=== PATIENT | female | born 1935 | race American Indian/Alaskan Native ===

== ENCOUNTER 2020-02-29 10:36 | Observation (INO) | payer MEDICARE ==
[2020-02-29] MEDS ORDERED: ASPIRIN EC 325 MG TAB PO ONE (11:13)
[2020-02-29] MEDS ORDERED: CLOPIDOGREL 75 MG TAB ONE ×2 (11:53→15:06)
[2020-02-29 12:06] LABS: Basophils % (Auto) 1.2 % (0.0-1.8); Eosinophils # (Auto) 0.1 K/mm3 (0.0-0.4); Eosinophils % (Auto) 2.4 % (0.0-4.3); Hemoglobin 11.8 gm/dl (10.1-14.3); Lymphocytes # (Auto) 1.4 K/mm3 (1.2-5.4); Lymphocytes % (Auto) 34.2 % (13.4-35.0); Mean Corpuscular HGB Conc 34 % (30-34); Mean Corpuscular Volume 95 fl (79-97); Monocytes # (Auto) 0.5 K/mm3 (0.0-0.8); Monocytes % (Auto) 11.3 % (0.0-7.3); Platelet Count 236 K/mm3 (140-440); Red Blood Count 3.68 M/mm3 (3.65-5.03); Red Cell Distribution Width 14.3 % (13.2-15.2)
[2020-02-29] MEDS: SODIUM CHLORIDE 0.9% 500 ML 500 ML IV SCH ×3 (12:17→21:55)
[2020-02-29 12:19] LABS: INR 0.97 (0.87-1.13)
[2020-02-29 12:22] LABS: Calcium 9.8 mg/dL (8.4-10.2)
[2020-02-29 12:24] LABS: Partial Thromboplastin Time 28.2 Sec. (24.2-36.6)
[2020-02-29] MEDS ORDERED: CLOPIDOGREL 75 MG TAB PO SCH (13:00)
[2020-02-29] MEDS ORDERED: fentaNYL 100 MCG/2 ML INJ ONE (13:30)
[2020-02-29] MEDS ORDERED: MIDAZOLAM 2 MG/2 ML INJ ONE (13:30)
[2020-02-29] MEDS ORDERED: VERAPAMIL 5 MG/2 ML INJ ONE (13:30)
[2020-02-29] MEDS ORDERED: HEPARIN/NS 5000 UNIT/500ML 1,000 ML IR ONE (13:30)
[2020-02-29] MEDS ORDERED: HEPARIN 10,000 UNITS/10 ML VIAL ONE (13:30)
[2020-02-29] MEDS ORDERED: LIDOCAINE (2%) 20 MG/1 ML VIAL 20 ML MDV INFILTRATI ONE (13:31)
[2020-02-29] MEDS: NITROGLYCERIN SYRINGE 3 ML ONE ×2 (13:49→13:50)
[2020-02-29] MEDS ORDERED: SODIUM CHLORIDE 0.9% 50 ML ONE (14:24)
[2020-02-29] MEDS: BIVALIRUDIN 250 MG INJ IV ONE ×3 (14:33→15:25)
[2020-02-29] MEDS ORDERED: ALUM-MAG HYDROXIDE-SIMETHICONE 200-200-20MG/5ML ORAL LIQD 30 ML ONE (15:06)
[2020-02-29] MEDS ORDERED: ACETAMINOPHEN 325 MG TAB PO PRN (15:14)
[2020-02-29] MEDS ORDERED: HYDROcodone/ACETAMINOPHEN 5-325 MG TAB PO PRN (15:14)
--- NOTE | 2020-02-29 15:26 | Event Note ---
<CYNTHIA DAVIS - Last Filed: 02/29/20 15:37> Date: 02/29/20 Patient underwent cardiac catheterization today, completed via the right femoral artery. Successful PCI of the small caliber first diagonal. Will admit overnight post PCI observation. Discharge tomorrow <DIMA MEREDITH - Last Filed: 03/01/20 07:28> Date: 03/01/20 the patient noted to have severe disease in the small caliber diagonal branch in the mid segment, underwent PCI to small caliber diagonal branch with a deployment of resolute PAMELA. The access is right radial artery. Tortuous course of the subclavian vessels as well as the aorta noted.
--- NOTE | 2020-02-29 17:51 | Cardiac Catherization Report ---
CARDIAC CATHETERIZATION REPORT PRIMARY DIRECT MARKETING COORDINATOR: Dr. Neri Elias CLINICAL INFORMATION: The patient is a pleasant 84-year-old -[place] female having recurrent exertional chest pains. Subsequently, she had a heart catheterization by Dr. Elias in the middle of January 2020, showed significant disease in the diagonal branch. Approximately 80% stenosis noted in the mid segment with diffuse disease distal to the stenotic lesion. She is being treated with nitrates, recently noticed having increased frequency of these pains. Subsequently, she is scheduled to have an elective PCI at [facility]. She has a history of hypertension and dyslipidemia. She is an octogenarian, risk factors and reviewed. Risks, benefits and alternatives were extensively discussed. After extensive discussion, we agreed to pursue for PCI to the diagonal branch. PROCEDURES PERFORMED: Today: 1. PCI to first diagonal branch with deployment of 2.25 x 18 mm Resolute Trenary drug-eluting stent. 2. Intracoronary nitroglycerin. SEDATION TIME: Sedation started at 1341 hours. Sedation ended at 1500 hours. Total sedation time is 79 minutes. The sedation is administered by a trained nurse under my supervision. I continue to monitor her hemodynamics and vital signs throughout the procedure. DESCRIPTION OF PROCEDURE: The right wrist area was cleaned and draped in sterile fashion. A 2% lidocaine was used for local anesthesia. Right radial artery was accessed with a micropuncture needle and 6-American slender sheath was inserted. Tortuosity of the subclavian vessels as well as the aorta noted. I used a 5-American Rentz diagnostic catheter to negotiate through the tortuosity in the aorta, subsequently selective angiograms of the left coronary system were obtained. After reviewing the diagnostic angiogram and reviewing the diagnostic angiogram from before that was obtained in 02/11/2020, we proceeded for intervention of the diagonal branch. PCI to diagonal branch:- The patient was given Angiomax during the procedure. A 6-American XB 3.5 guiding catheter was used and tried to engage the left coronary system, unable to navigate through the tortuosity in the subclavian vessels as well as in the aorta. Subsequently, I was able to get EBU 3.5 6-American guiding catheter to navigate with the help of a 5 American pigtail catheter inside the guiding catheter, and navigate to the tortuosity in the subclavian vessels as well as the aorta and able to selectively engage the left main coronary artery. Subsequently, a 0.014 BMW wire was placed in the LAD to give support to the guiding catheter. Critical lesion in the mid segment of the diagonal branch was successfully crossed with a 0.014 Runthrough wire. The lesion is predilated with a 2.0 x 10 mm Euphora balloon and subsequently stented with 2.25 x 18 mm Resolute Trenary PAMELA. The stent was deployed at 14 atmospheres. Intracoronary nitroglycerin was given. Post-intervention angiograms demonstrated a residual stenosis of 0% in the stented segment. The patient tolerated the procedure very well. At the end of the procedure, the right radial sheath was removed, radial wrist band applied. Hemostasis secured, transferred in hemodynamically and neurologically stable state to the observation area. CONCLUSIONS: The above study showed severe disease in the first diagonal branch in the mid segment, followed by diffuse disease, that area was stented with 2.25 x 18 mm Resolute Trenary drug-eluting stent with excellent results. Extreme tortuosity of the subclavian vessels as well as the proximal part of the aorta noted. RECOMMENDATIONS: 1. Aspirin 81 mg p.o. every day, uninterruptedly for rest of the life. 2. Plavix 75 mg p.o. every day, uninterruptedly for at least 1 year. Further recommendations and follow up as per Dr. Elias and Dr. Carrington Mccollum. Thanks Dr. Elias and Veda Almeida for allowing me to participate in the care of the patient. If you should have any further questions, please do not hesitate to contact me. JOB# [id number] JUAN F/SHIV KING
[2020-02-29] MEDS ORDERED: SODIUM CHLORIDE 0.9% 500 ML 500 ML ONE (21:50)
[2020-03-01] MEDS ORDERED: traZODone 50 MG TAB PO SCH ×3 (01:02→22:00)
[2020-03-01 05:24] LABS: Basophils % (Auto) 0.9 % (0.0-1.8); Eosinophils # (Auto) 0.1 K/mm3 (0.0-0.4); Eosinophils % (Auto) 2.6 % (0.0-4.3); Hemoglobin 10.7 gm/dl (10.1-14.3); Lymphocytes # (Auto) 1.1 K/mm3 (1.2-5.4); Lymphocytes % (Auto) 23.1 % (13.4-35.0); Mean Corpuscular HGB Conc 34 % (30-34); Mean Corpuscular Volume 96 fl (79-97); Monocytes # (Auto) 0.6 K/mm3 (0.0-0.8); Monocytes % (Auto) 12.1 % (0.0-7.3); Platelet Count 191 K/mm3 (140-440); Red Blood Count 3.32 M/mm3 (3.65-5.03); Red Cell Distribution Width 14.2 % (13.2-15.2)
[2020-03-01 05:39] LABS: Creatine Kinase MB 2.9 ng/mL (0.0-4.0)
[2020-03-01 05:47] LABS: Calcium 9.1 mg/dL (8.4-10.2)
[2020-03-01 06:34] LABS: Chol/HDL Ratio 3.11 %
--- NOTE | 2020-03-01 08:32 | XRay Report ---
XR chest 1V ap INDICATION / CLINICAL INFORMATION: post pci COMPARISON: None available. FINDINGS: SUPPORT DEVICES: None. HEART / MEDIASTINUM: No significant abnormality. LUNGS / PLEURA: Lungs are clear. Costophrenic sulci are sharp. No pneumothorax. ADDITIONAL FINDINGS: No significant additional findings. IMPRESSION: 1. No acute findings. Signer Name: Rohan Cherry MD Signed: 03/01/2020 8:27 AM Workstation Name: [id number]
--- NOTE | 2020-03-01 08:56 | Discharge Summary ---
Short Stay Discharge Plan Activity: advance as tolerated Diet: low fat, low cholesterol, low salt Wound: keep clean and dry Follow up with: YESI VAUGHAN MD [Primary Care Provider] - 7 Days ELROY BACH MD [Staff Physician] - 7 Days Prescriptions: AtorvaSTATin [Lipitor] 40 mg PO QHS #30 tablet
--- NOTE | 2020-03-01 09:28 | Short Stay Summary ---
<CYNTHIA DAVIS - Last Filed: 03/01/20 09:25> Short Stay Documentation Date of service: 03/01/20 - History H&P: obtained from office - Allergies and Medications Current Medications: Allergies No Known Allergies Allergy (Verified 03/11/18 16:09) Home Medications Medication Instructions Recorded Confirmed Last Taken Type Glimepiride 2 mg PO DAILY 05/03/14 02/29/20 02/28/20 History 2 mg Adult Low Dose Aspirin EC 81 mg PO DAILY 03/11/18 02/29/20 02/28/20 History 81 mg Clopidogrel [Plavix] 75 mg PO DAILY 02/29/20 02/29/20 02/28/20 History 75 mg Metoprolol Succinate [Toprol Xl] 25 mg PO DAILY 02/29/20 02/29/20 02/28/20 History 25 mg amLODIPine/VALSARTAN [Exforge 1 tab PO DAILY 02/29/20 02/29/20 02/28/20 History 10-160 mg Tablet] 1 AtorvaSTATin [Lipitor] 40 mg PO QHS #30 tablet 03/01/20 Unknown Rx Active Medications Acetaminophen (Tylenol) 650 mg PO Q4H PRN PRN Reason: Pain MILD(1-3)/Fever >100.5/LAUGHLIN Hydrocodone Bitart/Acetaminophen (Mobile 5/325) 1 each PO Q6H PRN PRN Reason: Pain, Moderate (4-6) Amlodipine Besylate (Amlodipine) 10 mg PO DAILY [facility] Aspirin (Baby Aspirin) 81 mg PO QDAY [facility] Atorvastatin Calcium (Lipitor) 40 mg PO QHS [facility] Last Admin: 02/29/20 21:55 Dose: 40 mg Documented by: Clopidogrel Bisulfate (Plavix) 75 mg PO QDAY [facility] Enoxaparin Sodium (Enoxaparin) 30 mg SUB-Q QDAY [facility] Glimepiride (Amaryl) 2 mg PO DAILY [facility] Metoprolol Succinate (Metoprolol Xl) 25 mg PO DAILY [facility] Trazodone HCl (Desyrel) 50 mg PO QHS [facility] Last Admin: 03/01/20 01:18 Dose: 50 mg Documented by: Valsartan (Diovan) 160 mg PO QDAY [facility] - Physical exam General appearance: no acute distress HEENT: PERRLA Lungs: Clear to auscultation Heart: Regular rate, Normal S1, Normal S2 - Brief post op/procedure progress note Condition: stable - Hospital course Hospital course: Stable overnight observation. - Disposition Condition at discharge: Good Disposition: DC-01 TO HOME OR SELFCARE Short Stay Discharge Plan Activity: advance as tolerated Weight Bearing Status: Partial Weight Bearing Diet: low fat, low cholesterol, low salt, diabetic Follow up with: YESI VAUGHAN MD [Primary Care Provider] - 7 Days ELROY BACH MD [Staff Physician] - 7 Days Prescriptions: AtorvaSTATin [Lipitor] 40 mg PO QHS #30 tablet Clopidogrel [Plavix] 75 mg PO DAILY #30 <TEZ BUSTAMANTE - Last Filed: 03/02/20 07:07> Short Stay Documentation Narrative H&P: I saw this pt & agree with the Dx & Tx plan. - Allergies and Medications Current Medications: Allergies No Known Allergies Allergy (Verified 03/11/18 16:09) Home Medications Medication Instructions Recorded Confirmed Last Taken Type Glimepiride 2 mg PO DAILY 05/03/14 02/29/20 02/28/20 History 2 mg Adult Low Dose Aspirin EC 81 mg PO DAILY 03/11/18 02/29/20 02/28/20 History 81 mg Metoprolol Succinate [Toprol Xl] 25 mg PO DAILY 02/29/20 02/29/20 02/28/20 History 25 mg amLODIPine/VALSARTAN [Exforge 1 tab PO DAILY 02/29/20 02/29/20 02/28/20 History 10-160 mg Tablet] 1 AtorvaSTATin [Lipitor] 40 mg PO QHS #30 tablet 03/01/20 Unknown Rx Clopidogrel [Plavix] 75 mg PO DAILY #30 03/01/20 Unknown Rx
[2020-03-01 09:48] VITALS: BP 131/72
[2020-03-01] MEDS ORDERED: GLIMEPIRIDE 2 MG PO SCH (10:00)
[2020-03-01] MEDS ORDERED: ENOXAPARIN 30 MG/0.3 ML INJ SUB-Q SCH (10:00)
[2020-03-01] MEDS ORDERED: ENOXAPARIN 100 MG/1 ML INJ SQ SCH (10:00)
[2020-03-01] MEDS ORDERED: CLOPIDOGREL 75 MG TAB PO SCH (10:00)
[2020-03-01] MEDS ORDERED: ASPIRIN 81 MG TAB CHEW PO SCH (10:00)
[2020-03-01] MEDS ORDERED: GLIMEPIRIDE 2 MG TAB PO SCH (10:00)
[2020-03-01] MEDS ORDERED: AMLODIPINE PO SCH (10:00)
[2020-03-01] MEDS ORDERED: amLODIPine 10 MG TAB PO SCH (10:00)
[2020-03-01] MEDS ORDERED: VALSARTAN PO SCH (10:00)
[2020-03-01] MEDS ORDERED: METOPROLOL SUCCINATE XL 25 MG TAB PO SCH (10:00)
[2020-03-01] MEDS ORDERED: VALSARTAN 160MG TAB PO SCH (10:00)
== END 2020-03-01 11:10 | disposition home or self-care (01) ==
LOC: CATHLABREC 12:31 → 4A 15:15
PROVIDERS: ADMIT Internal Medicine Cardiovascular Disease; ATTEND Internal Medicine Cardiovascular Disease
DX: I25.10 Atherosclerotic heart disease of native coronary artery without angina pectoris (principal); I12.9 Hypertensive chronic kidney disease with stage 1 through stage 4 chronic kidney disease, or unspecified chronic kidney disease; E11.22 Type 2 diabetes mellitus with diabetic chronic kidney disease; N18.2 Chronic kidney disease, stage 2 (mild); M13.0 Polyarthritis, unspecified; E78.5 Hyperlipidemia, unspecified; Z79.84 Long term (current) use of oral hypoglycemic drugs; Z79.82 Long term (current) use of aspirin; Z79.02 Long term (current) use of antithrombotics/antiplatelets; Z79.899 Other long term (current) drug therapy
CPT/HCPCS: 36415; 71045; 80048; 80061; 82550; 82553; 82962; 84484; 85025; 85610; 85730; 87116; 93005; 93454; 96372; 96374; 96376; A9270; C1725; C1769; C1874; C1887; C1894; C9600; G0378; J0583; J1644; J1650; J2250; J3010; J7040; 92928; Q9967